=== PATIENT | female | born 1995 | race Caucasian/White ===

== ENCOUNTER 2020-07-18 13:56 | Outpatient (RCR) | payer OTHER, SELFPAY | END 2020-07-20 23:59 | disposition home or self-care (01) | LOC: SPT 13:56 | PROVIDERS: PCP Family Medicine; Referring Provider Family Medicine; Visit Provider Family Medicine | DX: M54.9 Dorsalgia, unspecified (principal); M54.2 Cervicalgia; G89.29 Other chronic pain; M62.830 Muscle spasm of back | CPT/HCPCS: 97110; 97162 ==

== ENCOUNTER 2020-07-21 06:00 | Outpatient (RCR) | payer OTHER, SELFPAY | END 2020-08-20 23:59 | disposition home or self-care (01) | LOC: SPT 06:00 | PROVIDERS: PCP Family Medicine; Referring Provider Family Medicine; Visit Provider Family Medicine | DX: M54.9 Dorsalgia, unspecified (principal); G89.29 Other chronic pain; M54.2 Cervicalgia; M62.838 Other muscle spasm | CPT/HCPCS: 97110 ==

== ENCOUNTER → 2020-08-18 14:33 | Outpatient (BNVA) | payer OTHER, SELFPAY | PROVIDERS: PCP Family Medicine; Visit Provider Family Medicine | DX: Z12.4 Encounter for screening for malignant neoplasm of cervix (principal); N72 Inflammatory disease of cervix uteri; Z20.2 Contact with and (suspected) exposure to infections with a predominantly sexual mode of transmission; F33.1 Major depressive disorder, recurrent, moderate; F41.9 Anxiety disorder, unspecified; I10 Essential (primary) hypertension; R00.2 Palpitations | CPT/HCPCS: 87491; 87591; 87661; 88175 ==

== ENCOUNTER 2020-08-21 06:00 | Outpatient (RCR) | payer OTHER, SELFPAY | END 2020-09-19 23:59 | disposition home or self-care (01) | LOC: SPT 06:00 | PROVIDERS: PCP Family Medicine; Referring Provider Family Medicine; Visit Provider Family Medicine | DX: M54.9 Dorsalgia, unspecified (principal); G89.29 Other chronic pain; M54.2 Cervicalgia; M62.838 Other muscle spasm | CPT/HCPCS: 97110 ==